=== PATIENT | male | born 1955 | race Hispanic/Latino ===

== ENCOUNTER 2024-11-03 08:04 | Emergency (ER) | payer MEDICARE ==
[~2024-11-03] VITALS: Ht 165.1 cm; Wt 65.0 kg
[2024-11-03 08:10] VITALS: PULSE 70; RESP 16; TEMP 98.3
[2024-11-03] MEDS ORDERED: IOPAMIDOL 370 MG/ML 100 ML INFUS..BTL INJ ONE (08:29)
[2024-11-03] MEDS ORDERED: CARAFATE1 GM PO (09:52)
[2024-11-03] MEDS ORDERED: PROTONIX40 MG PO (09:52)
[2024-11-03 10:13] VITALS: BP 140/65; PULSE 59; RESP 20; TEMP 97.8; O2SAT 100
== END 2024-11-03 10:06 | disposition home or self-care (01) ==
LOC: FSED 08:19
DX: R10.13 Epigastric pain (principal); K29.70 Gastritis, unspecified, without bleeding; F10.10 Alcohol abuse, uncomplicated; E11.65 Type 2 diabetes mellitus with hyperglycemia; I10 Essential (primary) hypertension
CPT/HCPCS: 74177; 80048; 80076; 81003; 84484; 85025; 93005; 99283; Q9967